=== PATIENT | female | born 1950 | race Caucasian/White ===

== ENCOUNTER 2023-05-03 09:58 | Inpatient (IN) | payer MEDICARE, BC, SELFPAY ==
[2023-05-03] VITALS (27 sets, daily range): BP systolic 90–171; BP diastolic 58–86; PULSE 79–94; RESP 18–20; TEMP 35.5–36.6; O2SAT 90–100; BMI 39.1
[2023-05-03 11:52] LABS: Appearance Urine Clear (Clear); Bilirubin Urine Negative (Negative); Blood Urine 1+ (Negative); Color Urine Yellow (Yellow); Glucose Urine 3+ (Negative); Ketones Urine Trace (Negative); Leukocyte Esterase Urine 1+ (Negative); Nitrite Urine Negative (Negative); Protein Urine Negative (Negative); Specific Gravity Urine <= 1.005 (1.000-1.030); Urobilinogen Urine 0.2 (0.2-1.0)
[2023-05-03 11:59] LABS: Amphetamine Screen Urine Negative (Negative); Barbiturate Screen Urine Negative (Negative); Benzodiazepines Screen Urine Negative (Negative); Cannabinoid Screen Urine Negative (Negative); Cocaine Screen Urine Negative (Negative); Methadone Screen Urine Negative (Negative); Methamphetamines Screen Urine Negative (Negative); Opiate Screen Urine Negative (Negative); Oxycodone Screen Urine Negative (Negative); Phencyclidine Screen Urine Negative (Negative); Tricyclic Antidepressant Urine POSITIVE (Negative)
[2023-05-03 12:06] LABS: Bacteria Urine Moderate; WBC Urine 25-50 (0-5)
[2023-05-03] MEDS: ONDANSETRON 2 MG/ML inj 4 MG IVP (12:08)
[2023-05-03] MEDS: 0.9 % SODIUM CHLORIDE 1000 ml 1,000 ML IV ×2 (12:09→13:23)
[2023-05-03 12:19] LABS: Basophils Absolute Auto 0.04 K/uL (0.00-0.30); Basophils Percent Auto 0.4 % (0.0-3.0); Eosinophils Absolute Auto 0.18 K/uL (0.00-0.50); Eosinophils Percent Auto 1.7 % (0.0-7.0); Hematocrit 40.4 % (33.0-51.0); Hemoglobin* 14.6 gm/dL (12.0-16.0); Immature Granulocytes Abs Auto 0.02 K/uL (0.00-0.30); Immature Granulocytes Pct Auto 0.2 %; Lymphocytes Percent Auto 16.9 % (20-44); Mean Corpuscular HGB Conc 36 gm/dL (32-36); Mean Corpuscular Hemoglobin 33 pg (26-34); Mean Corpuscular Volume 91 fL (80-100); Monocytes Percent Auto 7.8 % (0.0-11.0); Platelet Count* 347 K/uL (140-440); RDW Coefficient of Variation % 11.7 % (11.5-15.5); Red Blood Count 4.45 m/uL (4.00-5.20)
[2023-05-03 12:22] LABS: Troponin, Point-of-Care* 0.05 ng/ml (0.01-0.04)
[2023-05-03 12:30] LABS: Albumin* 3.6 g/dL (3.3-5.0); Chloride* 84 mmol/L (96-114)
[2023-05-03 12:31] LABS: Potassium* 3.5 mmol/L (3.6-5.1)
[2023-05-03 12:32] LABS: Slide Review Reflex No
[2023-05-03 12:33] LABS: Creatinine* 1.3 mg/dL (0.5-1.5); Estimated Glomerular Filt Rate 44 ml/min
[2023-05-03 12:34] LABS: Alanine Aminotransferase* 21 U/L (4-35); Alkaline Phosphatase* 164 U/L (40-150); Aspartate Amino Transferase* 23 U/L (12-35); Bilirubin Direct* 0.3 mg/dL (0.0-0.5); Blood Urea Nitrogen* 19 mg/dL (7-30); Calcium* 10.5 mg/dL (8.4-10.6); Carbon Dioxide* 16 mmol/L (20-32); Total Protein* 6.6 g/dL (6.0-8.3)
[2023-05-03 12:36] LABS: C Reactive Protein* 4.3 mg/dL (0.5-1.0)
[2023-05-03 12:44] LABS: Ethanol* < 0.01 % (0.01-0.03)
[2023-05-03 12:45] LABS: Glucose* 856 mg/dL (60-115)
[2023-05-03 12:46] LABS: Sodium* 117 mmol/L (135-149)
[2023-05-03] MEDS: MORPHINE 2 MG/ML inj IVP (12:48)
[2023-05-03 12:57] LABS: PCR FLU A Negative PCR FLU A (Negative); PCR FLU B Negative PCR FLU B (Negative); PCR RSV Negative PCR RSV (Negative)
--- NOTE | 2023-05-03 12:58 | CRLHL7_ITS ---
For Patients: As a result of the Century Cures Act, medical imaging exams and procedure reports are released immediately into your electronic medical record. You may view this report before your referring provider. If you have questions, please contact your health care provider. INDICATION: Dyspnea COMPARISON: None TECHNIQUE: PA and lateral views of the chest were acquired FINDINGS: TUBES AND LINES: None. HEART AND MEDIASTINUM: The heart size is top normal. The mediastinal contour appears normal for patient age. LUNGS AND PLEURAL SPACES: Abnormal interstitial markings primarily on the right. The appearance is suggestive of edema though it is asymmetric. This could be the asymmetric development of edema or an atypical appearing inflammatory process.No pleural effusion or pneumothorax. OSSEOUS STRUCTURES: Age-appropriate appearance. No acute focal finding. IMPRESSION: Abnormal interstitial markings. Differential considerations are asymmetric development of edema versus an atypical inflammatory process. Dictated by Raymundo Llanes MD @ 05/03/2023 2:35:21 PM (Electronically Signed)
[2023-05-03 13:09] LABS: SARS PCR* Negative SARS-CoV-2 (Negative)
--- NOTE | 2023-05-03 13:09 | ED.NAVMDI ---
HPI - Nausea/Vomiting/Diarrhea General Date Seen: 05/03/23 Chief complaint: Nausea/Vomiting Stated complaint: hard to breathe, diarrhea, vomiting Time Seen by Provider: 05/03/23 10:53 Source: patient, family, RN notes reviewed and old records reviewed Mode of arrival: wheelchair Limitations: no limitations History of Present Illness HPI Narrative: Patient is a 72-year-old female presents here from home with her son, for evaluation of weakness, diarrhea, intermittent nausea, and weight loss of 10 lb. Been going on for 1 month, she did call for an appointment with her primary care doctor but was told appointments were going out approximately 6 weeks. Her son then brought her to the emergency room, she denies any fevers associated with this she does have abdominal pain some mild back pain associated with this no dysuria frequency she has a history of previous UTIs in the past. No recent use of antibiotics however. History of type 2 diabetes on metformin. History of neuropathy she does take narcotics on off for this and on a contract from her primary care physician MD elicited complaint: nausea, diarrhea and abdominal pain Pertinent past history: anorexia Associated nausea: Yes Associated abdominal pain: Yes Location of pain: epigastric, L flank and R flank Radiation: diffuse Pain consistency: constant Severity: moderate Exacerbating factors: none Relieving factors: none Associated symptoms: loss of appetite, nausea/vomiting and shortness of breath Treatment prior to arrival: none Related Data Home Medications Medication Instructions Recorded Confirmed cetirizine 10 mg tablet 10 mg PO DAILY 05/03/23 05/03/23 cyclobenzaprine 10 mg tablet 10 mg PO TID PRN 05/03/23 05/03/23 duloxetine 30 mg capsule,delayed 60 mg PO DAILY 05/03/23 05/03/23 release (Cymbalta) famotidine 40 mg tablet 40 mg PO QHS 05/03/23 05/03/23 ibuprofen 600 mg tablet 600 mg PO BID PRN 05/03/23 05/03/23 lisinopril 40 mg tablet 40 mg PO DAILY 05/03/23 05/03/23 metformin 500 mg tablet 500 mg PO BID 05/03/23 05/03/23 metoprolol tartrate 100 mg tablet 100 mg PO BID 05/03/23 05/03/23 (Lopressor) nortriptyline 25 mg capsule 25 mg PO QHS 05/03/23 05/03/23 oxycodone 5 mg tablet 5 - 10 mg PO Q6H PRN pain 05/03/23 05/03/23 rosuvastatin 5 mg tablet (Crestor) 5 mg PO HS 05/03/23 05/03/23 spironolactone 25 mg tablet 25 mg PO DAILY 05/03/23 05/03/23 (Aldactone) Allergies Allergy/AdvReac Type Severity Reaction Status Date / Time amoxicillin Allergy Unknown Verified 05/03/23 10:41 Penicillins Allergy Unknown Verified 05/03/23 10:41 Review of Systems Status of ROS: Reports: 10 or more systems reviewed and unremarkable except as noted in History and below GI: Reports: nausea PFSH PFSH Social History Smoking Status: Former smoker Do you use any of these nicotine containing products: None Second hand tobacco smoke exposure: No How often do you have a drink containing alcohol: never How often do you have six or more drinks on one occasion: Never AUDIT-C Alcohol total score: 0 Non-prescribed substance use: denies use service: No Exam Narrative: Exam Narrative: Patient is seen and stabilization room 2, she is speaking to me normally, she is able to sit up, her pupils equal round reactive to light, she has a bit of a sallow complexion however. With a little bit of conjunctival paleness. Oropharynx is normal, seems a little bit dry. Her neck is supple absence of meningismus, chest is good air entry bilaterally with no wheezing crackles noted, heart sounds no clicks murmurs or gallops, her abdomen is obese, I do not detect a lot of tenderness, there is no organomegaly, bowel sounds are normal, no CVA tenderness is noted on palpation her extremities all move normally, no edema, neurologically intact in upper lower extremities. Const: Vital Signs, click to edit/add: Vital Signs - 24 hr 05/03/23 10:32 05/03/23 12:10 05/03/23 12:30 Temperature 96 F L Pulse Rate Pulse Rate [Pulse Oximeter] 88 Respiratory Rate 20 Blood Pressure [Ri ght Upper Arm] 135/82 142/81 H Pulse Oximetry 98 98 Oxygen Delivery Me thod Room Air 05/03/23 12:37 Temperature 97.1 F L Pulse Rate 85 Pulse Rate [Pulse Oximeter] Respiratory Rate 18 Blood Pressure [Ri ght Upper Arm] Pulse Oximetry 92 Oxygen Delivery Me thod Documenting provider has reviewed patient's vital signs: yes Course Vital Signs Vital signs: Initial Vital Signs Temperature 96 F L 05/03/23 10:32 Temperature Source Temporal Artery Scan 05/03/23 10:32 Pulse Rate 88 05/03/23 10:32 Respiratory Rate 20 05/03/23 10:32 Blood Pressure 135/82 05/03/23 10:32 Blood Pressure Mean 99 05/03/23 10:32 Blood Pressure Position Semi-Fowlers 05/03/23 10:32 Pulse Oximetry 98 05/03/23 10:32 Oxygen Delivery Method Room Air 05/03/23 10:32 Vital Signs Temperature 96 F L 05/03/23 10:32 Pulse Rate 88 05/03/23 10:32 Respiratory Rate 20 05/03/23 10:32 Blood Pressure 135/82 05/03/23 10:32 Pulse Oximetry 98 05/03/23 10:32 Oxygen Delivery Method Room Air 05/03/23 10:32 Temperature 97.1 F L 05/03/23 12:37 Pulse Rate 85 05/03/23 12:37 Respiratory Rate 18 05/03/23 12:37 Blood Pressure 142/81 H 05/03/23 12:30 Pulse Oximetry 92 05/03/23 12:37 Oxygen Delivery Method Room Air 05/03/23 10:32 MDM - Nausea/Vomiting/Diarrhea MDM Narrative Medical decision making narrative: Life-threatening differential diagnosis considered include stroke, coronary artery disease, pneumonia, and heart failure. Other differential diagnosis include but are not limited to electrolyte imbalances, anemia, medication reactions, and urinary tract infection Medical Records Attestation: I reviewed the patient's medical records. Lab Data Attestation: I reviewed the patient's lab results. Labs: Lab Results 05/03/23 05/03/23 05/03/23 Range/Units 11:25 11:45 12:05 WBC 10.30 (4.50-11.00) K/uL RBC 4.45 (4.00-5.20) m/uL Hgb 14.6 (12.0-16.0) gm/dL Hct 40.4 (33.0-51.0) % MCV 91 (80-100) fL MCH 33 (26-34) pg MCHC 36 (32-36) gm/dL RDW Coeff of Alison 11.7 (11.5-15.5) % Plt Count 347 (140-440) K/uL Neut % (Auto) 73.0 H (42.0-72.0) % Lymph % (Auto) 16.9 L (20-44) % Runnels % (Auto) 7.8 (0.0-11.0) % Eos % (Auto) 1.7 (0.0-7.0) % Baso % (Auto) 0.4 (0.0-3.0) % Neut # (Auto) 7.50 H (1.7-7.0) K/uL Lymph # (Auto) 1.70 (0.90-2.90) K/uL Runnels # (Auto) 0.80 (0.00-0.90) K/UL Eos # (Auto) 0.18 (0.00-0.50) K/uL Baso # (Auto) 0.04 (0.00-0.30) K/uL Abs Immat Gran (auto) 0.02 (0.00-0.30) K/uL Imm/Tot Granulo (auto) 0.2 % Sodium 117 L* (135-149) mmol/L Potassium 3.5 L (3.6-5.1) mmol/L Chloride 84 L (96-114) mmol/L Carbon Dioxide 16 L (20-32) mmol/L BUN 19 (7-30) mg/dL Creatinine 1.3 (0.5-1.5) mg/dL Estimated GFR 44 ml/min Glucose 856 H* (60-115) mg/dL Calcium 10.5 (8.4-10.6) mg/dL Total Bilirubin 1.0 (0.1-1.5) mg/dL Direct Bilirubin 0.3 (0.0-0.5) mg/dL AST 23 (12-35) U/L ALT 21 (4-35) U/L Alkaline Phosphatase 164 H (40-150) U/L C-Reactive Protein 4.3 H (0.5-1.0) mg/dL Total Protein 6.6 (6.0-8.3) g/dL Albumin 3.6 (3.3-5.0) g/dL Urine Color Yellow (Yellow) Urine Appearance Clear (Clear) Urine pH 6.0 (5.0-8.5) Ur Specific Morris <= 1.005 (1.000-1.030) Urine Protein Negative (Negative) Urine Glucose (UA) 3+ A (Negative) Urine Ketones Trace A (Negative) Urine Blood 1+ A (Negative) Urine Nitrite Negative (Negative) Urine Bilirubin Negative (Negative) Urine Urobilinogen 0.2 (0.2-1.0) Ur Leukocyte Esterase 1+ A (Negative) Urine RBC 5-10 A (0-2) Urine WBC 25-50 A (0-5) Ur Squamous Epith Cells None (None-Few) Urine Bacteria Moderate A (None) Urine Yeast Moderate A (None) Urine Opiates Screen Negative (Negative) Ur Oxycodone Screen Negative (Negative) Urine Methadone Screen Negative (Negative) Ur Propoxyphene Screen Negative (Negative) Ur Barbiturates Screen Negative (Negative) U Tricyclic Antidepress POSITIVE A (Negative) Ur Phencyclidine Scrn Negative (Negative) Ur Amphetamines Screen Negative (Negative) U Methamphetamines Scrn Negative (Negative) U Benzodiazepines Scrn Negative (Negative) Urine Cocaine Screen Negative (Negative) U Marijuana (THC) Screen Negative (Negative) Ur Drug Screen Comment See Note Ethyl Alcohol < 0.01 L (0.01-0.03) % SARS-CoV-2 (PCR) Negative SARS-CoV-2 (Negative) Influenza Type A (PCR) Negative PCR FLU A (Negative) Influenza Type B (PCR) Negative PCR FLU B (Negative) RSV (PCR) Negative PCR RSV (Negative) POC Troponin I 0.05 H (0.01-0.04) ng/ml Severely hyponatremic, creatinine mildly elevated, she does have the mildly elevated troponin, which will need to be rechecked in the setting, of no chest pain, and been ongoing symptoms. Her EKG showed no acute changes. Suggestive of ischemia. Which is reassuring. Swabs for viral etiology is negative, her urinalysis is positive, suggesting possible kidney issue, such as pyelonephritis/UTI. I did review her chart, she has tolerated cephalosporins in the past, we will give her some Rocephin and I will talk to the inpatient doctor about admission. ECG Data ECG interpretation date: 05/03/23 Prior ECG tracings: not available for review Interpretation: EKG shows normal sinus rhythm with a ventricular rate of 86, left ventricular hypertrophy, with mild repolarization abnormality no other acute changes, QTC slightly prolonged likely secondary to hyponatremia Discharge Plan Discharge Clinical Impression: History of neuropathy, Acute pyelonephritis, Acute dehydration, Diabetes, Acute hyperglycemia, Diarrhea, Acute hyponatremia Patient Disposition: Admitted As Observation Condition: Stable Prescriptions: No Action lisinopril 40 mg tablet 40 mg PO DAILY cyclobenzaprine 10 mg tablet 10 mg PO TID PRN metoprolol tartrate [Lopressor] 100 mg tablet 100 mg PO BID ibuprofen 600 mg tablet 600 mg PO BID PRN oxycodone 5 mg tablet 5 - 10 mg PO Q6H PRN (Reason: pain) metformin 500 mg tablet 500 mg PO BID spironolactone [Aldactone] 25 mg tablet 25 mg PO DAILY famotidine 40 mg tablet 40 mg PO QHS nortriptyline 25 mg capsule 25 mg PO QHS rosuvastatin [Crestor] 5 mg tablet 5 mg PO HS duloxetine [Cymbalta] 30 mg capsule,delayed release(DR/EC) 60 mg PO DAILY cetirizine 10 mg tablet 10 mg PO DAILY Follow Up/Referrals: Kasey Zepeda DO [Primary Care Provider] -
[2023-05-03] MEDS: cefTRIAXone 1 GM in 0.9 % SODIUM CHLORIDE Mini-bag 100 ML IVPB (13:22)
--- NOTE | 2023-05-03 13:43 | ED.NURSE ---
pt has ambulated to the bathroom two times now. She has urinated both times a moderate amount, is not incontinent. She has had one bowel movement. Moves assist of one.
--- NOTE | 2023-05-03 14:52 | ED.NURSE ---
helped pt use the bedpan, pt voided medium amount. Upon cleaning her lisandro area noted the folds in her groin were very red, and yeasty.
--- NOTE | 2023-05-03 15:31 | ED.NURSE ---
Pt report given to [facility] nurse, pt transferred over to [facility].
[2023-05-03] MEDS: 0.9 % SODIUM CHLORIDE 1000 ml 1,000 ML 250 ML IV (15:42)
[2023-05-03 15:53] LABS: HCO3 VBG 22 mmol/L (21-28); Lactate* 2.5 mmol/L (0.5-1.9); PCO2 VBG 42 mmHG (40-50); PO2 VBG 26.9 mmHG (25-47); pH VBG 7.325 (7.32-7.43)
[2023-05-03] MEDS: PANTOPRAZOLE SODIUM 40 MG INJ IVP (15:57)
[2023-05-03] MEDS: INSULIN INF 100 UNIT/100 ML 100 UNIT/100 ML BAG 6.5 UNIT IVPB (16:03)
[2023-05-03 16:14] LABS: INR 1.09 (0.91-1.10); Prothrombin Time 14.8 Seconds
[2023-05-03 16:22] LABS: Lipase* 1456 U/L (23-300)
[2023-05-03 16:23] LABS: Magnesium* 1.2 mg/dL (1.5-2.6)
[2023-05-03 16:25] LABS: Hemoglobin A1C* 10.43 % (0-5.6)
[2023-05-03 16:37] LABS: Troponin I* 0.03 ng/mL (0.01-0.04)
[2023-05-03 16:39] LABS: NT Pro B Type NatriureticPept* 4440 pg/mL
[2023-05-03 16:41] LABS: Procalcitonin* 0.35 ng/mL (<0.50)
[2023-05-03 17:27] LABS: Chloride* 90 mmol/L (96-114)
[2023-05-03 17:28] LABS: Potassium* 3.3 mmol/L (3.6-5.1)
[2023-05-03 17:30] LABS: Creatinine* 1.2 mg/dL (0.5-1.5); Est. Creatinine Clearance* 42.42; Estimated Glomerular Filt Rate 49 ml/min
[2023-05-03 17:31] LABS: Blood Urea Nitrogen* 19 mg/dL (7-30); Calcium* 9.9 mg/dL (8.4-10.6); Carbon Dioxide* 18 mmol/L (20-32); Sodium* 123 mmol/L (135-149)
--- NOTE | 2023-05-03 17:45 | P.IMHP_ITS ---
Hospitalist- H&P: HPI History of Present Illness Date Seen: 05/03/23 Chief complaint: hard to breathe, diarrhea, vomiting Narrative: ADMISSION HISTORY AND PHYSICAL - HOSPITALIST Chief Complaint: My mom has had declining health over the last month, uncontrolled diarrhea, mild confusion and lethargy HPI: 72-year-old, [place], presents to our ER with her son. He states that she has been experiencing increased weakness, diarrhea, poor intake x4 weeks. Worse in the last 4 days. She does not leave their apartment much. She uses a walker from bed to bathroom. She has been staying in her bedroom. She has been having bowel accidents. She has seemed confused. Is a diabetic but has not checked her blood sugar. He is unsure what medications she takes and if she has been taking them. No obvious fever. No shakes or chills. No rash. She has not been complaining of chest pain. She started describing shortness of breath in the last couple of days. No obvious cough for Hack. No obvious one-sided weakness. ER COURSE: Found to have a blood sugar greater than 800. Very mildly acidotic. Lethargy, poor short-term memory. Vitals stable. Possible UTI. Hyperosmolar hyperglycemic diabetic state (HHS) identified. Hospital medicine team contacted for admission and further management. Admitted to our ICU. CODE STATUS: Full code EMERGENCY CONTACT PLAN: Johan Morgan, . Mahin [phone]. I've updated the PFSH, medications and allergies in the [facility]se tabs. INVESTIGATIONS: LABS/MICRO/ECG/IMAGING 116/84. Pulse 85. Resp is 18. Afebrile. O2 sat 92% on room air. 113 kg. BMI 39 CBC reflects a mild leukocytosis up to 10.3. Hemoglobin 14.6. Platelet count 347. However I feel like this is hemoconcentrated. INR 1.09 PH 7.3. PCO2 42. Bicarb 22. (after arrival to the floor in fluids, before insulin) Sodium on presentation was 117, corrected for glucose of 856, 135 Bicarb originally was 16. No gas completed in the ED. Potassium 3.5. Chloride 84. Creatinine 1.3 Calcium normal Magnesium 1.2 Lactate 2.5 A1c 7.4 Lipase 1456 Troponin is normal CRP 4.3, procalcitonin 0.3 UA showed 3+ glucose, white blood cells, moderate bacteria in [place]. 1+ leukocyte esterase. Two view chest x-ray Abnormal interstitial markings. Differential considerations are asymmetric development of edema versus an atypical inflammatory process. Blood cultures and urine culture pending EKG LVH, prolonged QT REVIEW OF SYSTEMS: 12-point ROS completed with patient and negative unless otherwise stated in HPI or below. PHYSICAL EXAM: CONSTITUTIONAL: Pale, tired. Edentulous. Mildly confused about the last month. RN reporting increasing awareness as her blood sugar decreases. VITAL SIGNS: see record. HEENT: Normocephalic, atraumatic. PERRL, EOMI, conjunctivae pink, no scleral icterus. Ears and nose externally normal. Pharynx normal. NECK: No JVD. No carotid bruit, no thyromegaly, no adenopathy. CHEST: Clear to auscultation bilaterally HEART: S1 and S2 normal. No harsh murmurs. Edema minimal MUSCULOSKELETAL: No gross joint deformity or swelling. NEURO: Cranial nerves intact. Grossly intact. No asymmetric findings. SKIN: No rashes, petechiae, concerning changes PSYCHIATRIC: Euthymic. ADMIT TO MEDSURG: CCU DVT: Lovenox GI: PO intake Time spent: Today I spent 75 minutes seeing the patient, discussing the patient with ER staff, reviewing Expanse and EPIC notes/diagnostics, discussing the care plan with our care time that includes social work, PT/OT, pharmacy, RT, senior living and documenting my impressions and plan in the medical record. [facility] Medical History (Updated 05/03/23 @ 18:23 by Davina Delatorre MD) Edentulism, complete ?K08.109 - Complete loss of teeth, unspecified cause, unspecified class (ICD- 10) Morbid obesity ?E66.01 - Morbid (severe) obesity due to excess calories (ICD-10) Lumbar degenerative disc disease ?M51.36 - Other intervertebral disc degeneration, lumbar region (ICD-10) H/O Graves' disease ?Z86.39 - Personal history of other endocrine, nutritional and metabolic disease (ICD-10) Opioid dependence ?F11.20 - Opioid dependence, uncomplicated (ICD-10) Dysthymic disorder ?F34.1 - Dysthymic disorder (ICD-10) Hypertension ?I10 - Essential (primary) hypertension (ICD-10) Shingles ?B02.9 - Zoster without complications (ICD-10) Type 2 diabetes mellitus ?E11.9 - Type 2 diabetes mellitus without complications (ICD-10) Chronic pain ?G89.29 - Other chronic pain (ICD-10) Noncompliance ?Z91.199 - Patient's noncompliance with other medical treatment and regimen due to unspecified reason (ICD-10) Surgical History (Updated 05/03/23 @ 18:06 by Davina Delatorre MD) H/O hernia repair ?Z98.890 - Other specified postprocedural states (ICD-10) ?Z87.19 - Personal history of other diseases of the digestive system (ICD-10) History of ?Z98.891 - History of uterine scar from previous surgery (ICD-10) History of carpal tunnel release ?Z98.890 - Other specified postprocedural states (ICD-10) History of bunionectomy ?Z98.890 - Other specified postprocedural states (ICD-10) Social History What is your current living situation?: I presently have a place to live Problems where you live: no known problems Problems where you live details: N/A In the past 12 months, utilities in danger of being shut off: no In the past 12 mos, have been you worried that your food would run out before you had money to buy more?: never true In the past 12 mos, the food you bought just didn't last and you didn't have money to buy more?: never true Smoking Status: Former smoker Do you use any of these nicotine containing products: None Second hand tobacco smoke exposure: No How often do you have a drink containing alcohol: never How often do you have six or more drinks on one occasion: Never AUDIT-C Alcohol total score: 0 Non-prescribed substance use: denies use Caffeine: Yes How often does anyone, including family, friends and others, physically hurt you : never How often does anyone, including family, friends and others, insult or talk down to you: never How often does anyone, including family, friends and others, threaten you with harm: never How often does anyone, including family, friends and others, scream or curse at you: never service: No Meds Home Medications and Allergies Home Medications Medication Instructions Recorded Confirmed Type cetirizine 10 mg tablet 10 mg PO DAILY 05/03/23 05/03/23 History cholecalciferol (vitamin D3) 50 50 mcg PO DAILY 05/03/23 05/03/23 History mcg (2,000 unit) capsule (Vitamin D3) cyclobenzaprine 10 mg tablet 10 mg PO TID PRN 05/03/23 05/03/23 History duloxetine 30 mg capsule,delayed 60 mg PO DAILY 05/03/23 05/03/23 History release (Cymbalta) famotidine 40 mg tablet 40 mg PO QHS 05/03/23 05/03/23 History ibuprofen 600 mg tablet 600 mg PO BID PRN 05/03/23 05/03/23 History lisinopril 40 mg tablet 40 mg PO DAILY 05/03/23 05/03/23 History metformin 500 mg tablet 500 mg PO BID 05/03/23 05/03/23 History metoprolol tartrate 100 mg tablet 100 mg PO BID 05/03/23 05/03/23 History (Lopressor) nortriptyline 25 mg capsule 25 mg PO QHS 05/03/23 05/03/23 History oxycodone 5 mg tablet 5 - 10 mg PO Q6H PRN pain 05/03/23 05/03/23 History rosuvastatin 5 mg tablet (Crestor) 5 mg PO HS 05/03/23 05/03/23 History spironolactone 25 mg tablet 25 mg PO DAILY 05/03/23 05/03/23 History (Aldactone) Allergies Allergy/AdvReac Type Severity Reaction Status Date / Time amoxicillin Allergy Unknown Verified 05/03/23 10:41 Penicillins Allergy Unknown Verified 05/03/23 10:41 Exam Const: Vital Signs, click to edit/add: Vital Signs - 24 hr 05/03/23 10:32 05/03/23 12:10 05/03/23 12:30 Temperature 96 F L Pulse Rate Pulse Rate [Apical ] Pulse Rate [Pulse Oximeter] 88 Respiratory Rate 20 Blood Pressure Blood Pressure [Le ft Arm] Blood Pressure [Ri ght Upper Arm] 135/82 142/81 H Pulse Oximetry 98 98 Oxygen Delivery Me thod Room Air 05/03/23 12:37 05/03/23 12:45 05/03/23 13:00 Temperature 97.1 F L Pulse Rate 85 84 81 Pulse Rate [Apical ] Pulse Rate [Pulse Oximeter] Respiratory Rate 18 Blood Pressure Blood Pressure [Le ft Arm] Blood Pressure [Ri ght Upper Arm] Pulse Oximetry 92 96 100 Oxygen Delivery Ks thod 05/03/23 13:02 05/03/23 13:21 05/03/23 13:30 Temperature Pulse Rate 79 83 80 Pulse Rate [Apical ] Pulse Rate [Pulse Oximeter] Respiratory Rate Blood Pressure 142/71 H Blood Pressure [Le ft Arm] Blood Pressure [Ri ght Upper Arm] Pulse Oximetry 98 98 [facility] 13:32 05/03/23 13:50 05/03/23 14:00 Temperature Pulse Rate 85 85 81 Pulse Rate [Apical ] Pulse Rate [Pulse Oximeter] Respiratory Rate Blood Pressure 138/85 Blood Pressure [Le ft Arm] Blood Pressure [Ri ght Upper Arm] Pulse Oximetry 98 96 97 [facility] 05/[facility]/23 14:04 05/03/23 14:11 05/03/23 14:15 Temperature Pulse Rate 80 84 84 Pulse Rate [Apical ] Pulse Rate [Pulse Oximeter] Respiratory Rate Blood Pressure 146/86 H Blood Pressure [Le ft Arm] Blood Pressure [Ri ght Upper Arm] Pulse Oximetry 97 95 97 [facility] 05/[facility]/23 14:30 05/03/23 14:31 05/03/23 14:35 Temperature 97.6 F Pulse Rate 84 87 Pulse Rate [Apical ] Pulse Rate [Pulse Oximeter] Respiratory Rate 18 Blood Pressure 165/81 H Blood Pressure [Le ft Arm] Blood Pressure [Ri ght Upper Arm] Pulse Oximetry 97 96 Oxygen Delivery Ks thod 05/03/23 14:45 05/03/23 15:00 05/03/23 15:02 Temperature Pulse Rate 83 86 84 Pulse Rate [Apical ] Pulse Rate [Pulse Oximeter] Respiratory Rate Blood Pressure 171/74 H Blood Pressure [Le ft Arm] Blood Pressure [Ri ght Upper Arm] Pulse Oximetry 99 93 94 Oxygen Delivery Ks thod 05/03/23 15:20 05/03/23 16:30 05/03/23 16:30 Temperature 98 F Pulse Rate 88 Pulse Rate [Apical ] 85 Pulse Rate [Pulse Oximeter] Respiratory Rate 18 Blood Pressure Blood Pressure [Le ft Arm] 116/84 Blood Pressure [Ri ght Upper Arm] Pulse Oximetry 100 92 Oxygen Delivery Me thod Room Air Room Air Hospitalist - H&P: Result Labs Labs: Short CBC 05/03/23 Range/Units 12:05 WBC 10.30 (4.50-11.00) K/uL Hgb 14.6 (12.0-16.0) gm/dL Hct 40.4 (33.0-51.0) % Plt Count 347 (140-440) K/uL BMP 05/03/23 05/03/23 12:05 15:37 Sodium 117 L* 123 L* Potassium 3.5 L 3.3 L Chloride 84 L 90 L Carbon Dioxide 16 L BUN 19 Creatinine 1.3 Glucose 856 H* Calcium 10.5 Cardiac Enzymes 05/03/23 Range/Units 15:37 Troponin I 0.03 (0.01-0.04) ng/mL Liver Function 05/03/23 Range/Units 12:05 Total Bilirubin 1.0 (0.1-1.5) mg/dL Direct Bilirubin 0.3 (0.0-0.5) mg/dL AST 23 (12-35) U/L ALT 21 (4-35) U/L Alkaline Phosphatase 164 H (40-150) U/L Albumin 3.6 (3.3-5.0) g/dL Urine 05/03/23 Range/Units 11:45 Urine Color Yellow (Yellow) Urine Appearance Clear (Clear) Urine pH 6.0 (5.0-8.5) Ur Specific [place] <= 1.005 (1.000-1.030) Urine Protein Negative (Negative) Urine Glucose (UA) 3+ A (Negative) Assessment and Plan Assessment and plan (1) Hyperosmolar hyperglycemic state (HHS): Problem comment: -stupor, hyperglycemia, non acidotic -insulin drip, fluids, electrolyte correction -pseudohyponatriemia Status: Acute (2) Type 2 diabetes mellitus: Problem comment: -A1c greater than 10 -presenting in HHS -insulin drip, transitioning to subcu insulin per protocol -mildly to moderately dehydrated, replacing electrolytes and intravenous volume -treating underlying pneumonia and cystitis -likely noncompliance/lifestyle is the root cause Status: Acute (3) Acute pyelonephritis: Problem comment: -urine culture pending. Ceftriaxone started in the ED. Blood cultures pending but drawn after ceftriaxone on the floor. Status: Acute (4) Diarrhea: Problem comment: -stool studies, C diff ordered Status: Acute (5) Pneumonia: Problem comment: -abnl chest xray; consider repeat or CT scan -levaquin instead ceftriaxone (cover atypical pneumonia/UTI) -add flagyl to cover diarrhea illness. Status: Acute (6) Hypertension: Problem comment: Lisinopril, hydralazine, metoprolol, spironolactone -use Home meds judiciously as her compliance is in question and she is acutely ill Status: Acute (7) Dysthymic disorder: Problem comment: -continue Cymbalta Status: Acute (8) Noncompliance: Status: Acute (9) Chronic pain: Status: Acute (10) Opioid dependence: Problem comment: -chronic back pain. Holding home Flexeril dosing. Oxycodone per home regimen was 4 5 mg tabs max today. Will continue to make this available so we can avoid withdrawal. Status: Acute (11) Morbid obesity: Status: Acute (12) Lumbar degenerative disc disease: Status: Acute (13) H/O Graves' disease: Problem comment: -check TSH Status: Acute (14) Shingles: Problem comment: -left buttock, no pain. Chronic/intermittent -cover with Mepilex Status: Acute (15) History of tobacco abuse: Problem comment: -[id number]. 1.5 PACKS PER DAY Status: Acute (16) Edentulism, complete: Status: Acute
[2023-05-03] MEDS: MAGNESIUM IV 4 GM/100 ML PIGGYBACK IVPB (18:12)
[2023-05-03 18:24] LABS: Glucose* 666 mg/dL (60-115)
[2023-05-03] MEDS: POTASSIUM CHLORIDE 10 MEQ/100 ML PIGGYBACK 100 MEQ IVPB ×2 (18:25→19:59)
[2023-05-03] MEDS: levoFLOXacin 500 MG TABLET PO (19:47)
[2023-05-03] MEDS: 5 % DEX/0.45 SOD CHL+KCL20 mEq 1,000 ML 200 ML IV (19:51)
[2023-05-03] MEDS: metroNIDAZOLE 500 MG/100 ML PIGGYBACK 100 MG IVPB (20:01)
[2023-05-03] MEDS: SODIUM CHLORIDE 0.9 % (FLUSH) 10 ML SYRINGE 5 ML IVF (20:07)
[2023-05-03] MEDS: ENOXAPARIN 40 MG/0.4 ML INJ SUBCUT (20:46)
[2023-05-03] MEDS: ROSUVASTATIN CALCIUM 10 MG TABLET 5 MG PO (20:46)
[2023-05-03] MEDS: FAMOTIDINE 20 MG TABLET 40 MG PO (20:47)
[2023-05-03 22:12] LABS: HCO3 VBG 21 mmol/L (21-28); Lactate* 2.2 mmol/L (0.5-1.9); PCO2 VBG 40 mmHG (40-50); PO2 VBG 27.3 mmHG (25-47); pH VBG 7.326 (7.32-7.43)
[2023-05-03 22:28] LABS: Chloride* 97 mmol/L (96-114); Potassium* 3.3 mmol/L (3.6-5.1); Sodium* 127 mmol/L (135-149)
[2023-05-03 22:31] LABS: Blood Urea Nitrogen* 16 mg/dL (7-30); Calcium* 9.5 mg/dL (8.4-10.6); Carbon Dioxide* 18 mmol/L (20-32); Creatinine* 1.2 mg/dL (0.5-1.5); Est. Creatinine Clearance* 42.42; Estimated Glomerular Filt Rate 49 ml/min
[2023-05-03 22:48] LABS: Glucose* 359 mg/dL (60-115)
[2023-05-04] VITALS (13 sets, daily range): BP systolic 116–158; BP diastolic 61–85; PULSE 58–88; RESP 18–20; TEMP 36.6–36.8; O2SAT 91–99; BMI 38.9
[2023-05-04] MEDS: 0.9 % SODIUM CH + KCL 20 mEq/L 1,000 ML 125 ML IV (01:14)
[2023-05-04] MEDS: metroNIDAZOLE 500 MG/100 ML PIGGYBACK 100 MG IVPB ×2 (04:13→12:19)
[2023-05-04 06:58] LABS: Hematocrit 36.6 % (33.0-51.0); Hemoglobin* 12.8 gm/dL (12.0-16.0); Mean Corpuscular HGB Conc 35 gm/dL (32-36); Mean Corpuscular Hemoglobin 33 pg (26-34); Mean Corpuscular Volume 93 fL (80-100); Platelet Count* 328 K/uL (140-440); Red Blood Count 3.94 m/uL (4.00-5.20); White Blood Count* 8.56 K/uL (4.50-11.00)
[2023-05-04 07:16] LABS: HCO3 VBG 23 mmol/L (21-28); Ionized Calcium* 1.39 mmol/L (1.11-1.30); Lactate* 1.7 mmol/L (0.5-1.9); PCO2 VBG 50 mmHG (40-50); PO2 VBG 38.9 mmHG (25-47); pH VBG 7.272 (7.32-7.43)
[2023-05-04 07:17] LABS: Slide Review Reflex No
--- NOTE | 2023-05-04 07:35 | PC.NURSE ---
SHIFT NOTE : Pt A&O, cooperative. Denies pain, SOB, CP, and N/V. Up to the BR with a 1 assist and a walker, steady. Initially on an insulin drip, stopped around 2029 per MD, SSI started and Levemir given. See eMAR for insulins given overnight. Per MD was to do a 0400 blood sugar and give SSI per protocol, blood sugar was 386, 15units SSI given. Pt received 2 bags of IV 10MEQ potassium, MD updated that despite piggyback and slowing the rate, pt was not tolerating the infusion, MD gave ok to discontinue the last two bags of potassium. Pt on 1-2L O2 overnight, oxygen saturations mid 90's.
[2023-05-04 07:38] LABS: Lipase* 697 U/L (23-300)
[2023-05-04 07:41] LABS: C Reactive Protein* 2.8 mg/dL (0.5-1.0)
[2023-05-04 07:52] LABS: Troponin I* 0.04 ng/mL (0.01-0.04)
[2023-05-04 07:55] LABS: Procalcitonin* 0.33 ng/mL (<0.50)
[2023-05-04] MEDS: SODIUM CHLORIDE 0.9 % (FLUSH) 10 ML SYRINGE 5 ML IVF ×2 (08:08→21:30)
[2023-05-04] MEDS: DULOXETINE 30 MG CAPSULE DR 60 MG PO (08:08)
[2023-05-04 08:42] LABS: NT Pro B Type NatriureticPept* 3480 pg/mL
[2023-05-04] MEDS: POTASSIUM BICARB 25 MEQ EFFERVESCENT TAB 50 MEQ PO (10:13)
--- NOTE | 2023-05-04 12:05 | P.IMPN_ITS ---
Progress Note: A&P Assessment and plan (1) Hyperosmolar hyperglycemic state (HHS): Problem details: -stupor, hyperglycemia, non acidotic -insulin drip, fluids, electrolyte correction -pseudohyponatriemia Status: Acute (2) Acute confusion: Problem details: Will do cognitive assessment to determine whether there is underlying cognitive problem. She is acutely better. Acute confusion likely primarily due to HHS Status: Acute (3) Pneumonia: Problem details: Clinically does not have obvious symptoms of pneumonia. Treat with Levaquin for community-acquired pneumonia based on abnormal chest x-ray. Using Levaquin to treat empirically for UTI. Status: Acute (4) Acute pyelonephritis: Problem details: Patient with recurrent UTI. Has chronic urinary symptoms. On cephalexin for prophylaxis. On that basis will use Levaquin for treatment. Status: Acute (5) Noncompliance: Problem details: Patient acknowledges chronic medication noncompliance and poor diabetes monitoring at home. This is likely gotten much worse with her increasing confusion over the past month Status: Acute (6) Morbid obesity: Status: Acute (7) Opioid dependence: Problem details: -chronic back pain. Holding home Flexeril dosing. Had been taking oxycodone approximately 5 mg tablets up to 3 times a day. Will change dosing so she takes no more than 1 5 mg tablet at a time. Status: Acute (8) Type 2 diabetes mellitus: Problem details: -A1c greater than 10 -presenting in [facility] -insulin drip, transitioning to subcu insulin per protocol -mildly to moderately dehydrated, replacing electrolytes and intravenous volume -treating underlying pneumonia and cystitis -likely noncompliance/lifestyle is the root cause Temporarily will use insulin to control diabetes. Recommend resuming metformin and Bydureon when GI symptoms have improved. Status: Acute (9) History of tobacco abuse: Problem details: -[id number]. 1.5 PACKS PER DAY Status: Acute (10) Hypertension: Problem details: Lisinopril, hydralazine, metoprolol, spironolactone -use Home meds judiciously as her compliance is in question and she is acutely ill Status: Acute (11) Dysthymic disorder: Problem details: -continue Cymbalta Status: Acute (12) Diarrhea: Problem details: -stool studies, C diff ordered No stools since admission Status: Acute (13) Chronic pain: Status: Acute Plan Continue in-hospital for optimizing diabetes control, resuming blood pressure medications, monitoring and treating GI problems. Anticipate discharge to home when patient is able to manage self medication and tolerating oral food and fluid. Time Spent With Patient Total time spent: Total time spent today is 60 minutes, 40 minutes in coordination of care discussing with patient other providers ongoing evaluation and management of diabetes and hypertension and medication compliance Subjective Date Seen: 05/04/23 Interval history: 72-year-old female seen in followup of hospital admission for 1 month history of diarrhea, anorexia, nausea progressing to acute confusion. On admission she was found to be hyperglycemic and hyponatremic. There was a question also of a urinary tract infection and pulmonary infiltrate. She was treated with insulin drip which has been discontinued and now she is on subcutaneous insulin. She was given ceftriaxone and then switched to Levaquin to treat both UTI and pulse of bowl pneumonia. She has had some shortness of breath but no other respiratory symptoms. She is not aware of any fever. She does have a history of recurrent UTIs and has been on cephalexin for daily UTI prophylaxis. She tells me she is not reliably taking this medication however. During the past month with her progressive confusion she has been less compliant with her medications as well. She thinks she ran out of her glipizide about a month ago. She has also not been taking her blood pressure medications reliably recently. She was prescribed Bydureon but has not filled that prescription or started that medication. Overnight she is weaned off of the insulin drip to subcutaneous insulin. Blood sugars have improved though not yet back to normal. Metformin has been held because of her diarrhea. She has had no further diarrhea since admission. She has been able to eat without nausea or vomiting. Bydureon has been held because of diarrhea, nausea and anorexia as well. Vital signs have been relatively normal. She reports dyspnea with exertion but otherwise no respiratory symptoms at rest, no cough, dyspnea. She has had no fever or chest pain. Exam Narrative: Exam Narrative: She is alert and appears in no distress. She is oriented to her circumstances and able to give her own history. Eyes are normal. Oropharynx: Edentulous with small airway. Neck is supple without mass or adenopathy. Respirations are clear to auscultation without wheezing rales or rhonchi. Cardiovascular: S1, S2, regular rate and rhythm. No murmur gallop or rub. Abdomen: Bowel sounds active. Abdomen is soft with minimal epigastric tenderness. Extremities without edema. She has self reported decreased sensation in her feet bilaterally due to neuropathy. Intact pedal pulses. No rash. Const: Vital Signs, click to edit/add: Vital Signs - 24 hr 05/03/23 12:10 05/03/23 12:30 05/03/23 12:37 Temperature 97.1 F L Pulse Rate 85 Pulse Rate [Apical ] Respiratory Rate 18 Blood Pressure Blood Pressure [Le ft Arm] Blood Pressure [Ri ght Upper Arm] 142/81 H Pulse Oximetry 98 92 Oxygen Delivery Me thod Oxygen Flow Rate 05/03/23 12:45 05/03/23 13:00 05/03/23 13:02 Temperature Pulse Rate 84 81 79 Pulse Rate [Apical ] Respiratory Rate Blood Pressure 142/71 H Blood Pressure [Le ft Arm] Blood Pressure [Ri ght Upper Arm] Pulse Oximetry 96 100 98 Oxygen Delivery Me thod Oxygen Flow Rate 05/03/23 13:21 05/03/23 13:30 05/03/23 13:32 Temperature Pulse Rate 83 80 85 Pulse Rate [Apical ] Respiratory Rate Blood Pressure 138/85 Blood Pressure [Le ft Arm] Blood Pressure [Ri ght Upper Arm] Pulse Oximetry 98 97 98 Oxygen Delivery Me thod Oxygen Flow Rate 05/03/23 13:50 05/03/23 14:00 05/03/23 14:04 Temperature Pulse Rate 85 81 80 Pulse Rate [Apical ] Respiratory Rate Blood Pressure Blood Pressure [Le ft Arm] Blood Pressure [Ri ght Upper Arm] Pulse Oximetry 96 97 97 Oxygen Delivery Me thod Oxygen Flow Rate 05/03/23 14:11 05/03/23 14:15 05/03/23 14:30 Temperature Pulse Rate 84 84 84 Pulse Rate [Apical ] Respiratory Rate Blood Pressure 146/86 H Blood Pressure [Le ft Arm] Blood Pressure [Ri ght Upper Arm] Pulse Oximetry 95 97 97 Oxygen Delivery Me thod Oxygen Flow Rate 05/03/23 14:31 05/03/23 14:35 05/03/23 14:45 Temperature 97.6 F Pulse Rate 87 83 Pulse Rate [Apical ] Respiratory Rate 18 Blood Pressure 165/81 H Blood Pressure [Le ft Arm] Blood Pressure [Ri ght Upper Arm] Pulse Oximetry 96 99 Oxygen Delivery Me thod Oxygen Flow Rate 05/03/23 15:00 05/03/23 15:02 05/03/23 15:20 Temperature Pulse Rate 86 84 Pulse Rate [Apical ] Respiratory Rate Blood Pressure 171/74 H Blood Pressure [Le ft Arm] Blood Pressure [Ri ght Upper Arm] Pulse Oximetry 93 94 100 Oxygen Delivery Me thod Room Air Oxygen Flow Rate 05/03/23 16:30 05/03/23 16:30 05/03/23 18:00 Temperature 98 F 98 F Pulse Rate 88 Pulse Rate [Apical ] 85 94 Respiratory Rate 18 18 Blood Pressure Blood Pressure [Le ft Arm] 116/84 131/78 Blood Pressure [Ri ght Upper Arm] Pulse Oximetry 92 98 Oxygen Delivery Me thod Room Air Room Air Oxygen Flow Rate 05/03/23 19:00 05/03/23 20:00 05/03/23 22:00 Temperature 97.8 F 98 F Pulse Rate Pulse Rate [Apical ] 90 88 Respiratory Rate 20 20 18 Blood Pressure Blood Pressure [Le ft Arm] 90/58 L 107/63 Blood Pressure [Ri ght Upper Arm] Pulse Oximetry 90 95 Oxygen Delivery Me thod Room Air Room Air Oxygen Flow Rate 05/04/23 00:00 05/04/23 00:00 05/04/23 02:00 Temperature 98.3 F 98.1 F Pulse Rate 82 Pulse Rate [Apical ] 78 82 Respiratory Rate 20 20 Blood Pressure Blood Pressure [Le ft Arm] 116/61 131/68 Blood Pressure [Ri ght Upper Arm] Pulse Oximetry 95 99 Oxygen Delivery Me thod Nasal Cannula Nasal Cannula Oxygen Flow Rate 2 1 05/04/23 04:00 05/04/23 06:00 05/04/23 07:58 Temperature 97.9 F 98 F 98.1 F Pulse Rate Pulse Rate [Apical ] 87 78 88 Respiratory Rate 20 20 18 Blood Pressure Blood Pressure [Le ft Arm] 119/85 137/75 158/83 H Blood Pressure [Ri ght Upper Arm] Pulse Oximetry 97 94 99 Oxygen Delivery Me thod Nasal Cannula Nasal Cannula Room Air Oxygen Flow Rate 1 1 05/04/23 08:00 05/04/23 08:00 Temperature Pulse Rate 83 Pulse Rate [Apical ] 88 Respiratory Rate 18 Blood Pressure Blood Pressure [Le ft Arm] Blood Pressure [Ri ght Upper Arm] Pulse Oximetry Oxygen Delivery Me thod Oxygen Flow Rate Documenting provider has reviewed patient's vital signs: yes Labs Labs: Laboratory Results - last 24 hr 05/03/23 05/03/23 05/03/23 11:25 11:45 12:05 WBC 10.30 RBC 4.45 Hgb 14.6 Hct 40.4 MCV 91 MCH 33 MCHC 36 RDW Coeff of Alison 11.7 Plt Count 347 Neut % (Auto) 73.0 H Lymph % (Auto) 16.9 L [place] % (Auto) 7.8 Eos % (Auto) 1.7 Baso % (Auto) 0.4 Neut # (Auto) 7.50 H Lymph # (Auto) 1.70 [place] # (Auto) 0.80 Eos # (Auto) 0.18 Baso # (Auto) 0.04 Abs Immat Gran (auto) 0.02 Imm/Tot Granulo (auto) 0.2 INR VBG pH VBG pCO2 VBG pO2 VBG HCO3 Sodium 117 L* Potassium 3.5 L Chloride 84 L Carbon Dioxide 16 L BUN 19 Creatinine 1.3 Estimated Creat Clear Estimated GFR 44 Glucose 856 H* Hemoglobin A1c Lactate Calcium 10.5 Ionized Calcium Carolyn Magnesium Total Bilirubin 1.0 Direct Bilirubin 0.3 AST 23 ALT 21 Alkaline Phosphatase 164 H Troponin I C-Reactive Protein 4.3 H NT-Pro-B Natriuret Pep Total Protein 6.6 Albumin 3.6 Lipase Procalcitonin Urine Color Yellow Urine Appearance Clear Urine pH 6.0 Ur Specific [place] <= 1.005 Urine Protein Negative Urine Glucose (UA) 3+ A Urine Ketones Trace A Urine Blood 1+ A Urine Nitrite Negative Urine Bilirubin Negative Urine Urobilinogen 0.2 Ur Leukocyte Esterase 1+ A Urine RBC 5-10 A Urine WBC 25-50 A Ur Squamous Epith Cells None Urine Bacteria Moderate A Urine Yeast Moderate A Ethyl Alcohol < 0.01 L SARS-CoV-2 (PCR) Negative SARS-CoV-2 Influenza Type A (PCR) Negative PCR FLU A Influenza Type B (PCR) Negative PCR FLU B RSV (PCR) Negative PCR RSV Lab Acknowledgement POC Troponin I 0.05 H 05/03/23 05/03/23 05/03/23 15:37 15:56 16:16 WBC RBC Hgb Hct MCV MCH MCHC RDW Coeff of Alison Plt Count Neut % (Auto) Lymph % (Auto) [place] % (Auto) Eos % (Auto) Baso % (Auto) Neut # (Auto) Lymph # (Auto) [place] # (Auto) Eos # (Auto) Baso # (Auto) Abs Immat Gran (auto) Imm/Tot Granulo (auto) INR 1.09 VBG pH 7.325 VBG pCO2 42 VBG pO2 26.9 VBG HCO3 22 Sodium 123 L* Potassium 3.3 L Chloride 90 L Carbon Dioxide 18 L BUN 19 Creatinine 1.2 Estimated Creat Clear 42.42 Estimated GFR 49 Glucose 666 H* Hemoglobin A1c 10.43 H Lactate 2.5 H Calcium 9.9 Ionized Calcium Carolyn 1.30 Magnesium 1.2 L Total Bilirubin Direct Bilirubin AST ALT Alkaline Phosphatase Troponin I 0.03 C-Reactive Protein NT-Pro-B Natriuret Pep 4440 Total Protein Albumin Lipase 1456 H Procalcitonin 0.35 Urine Color Urine Appearance Urine pH Ur Specific [place] Urine Protein Urine Glucose (UA) Urine Ketones Urine Blood Urine Nitrite Urine Bilirubin Urine Urobilinogen Ur Leukocyte Esterase Urine RBC Urine WBC Ur Squamous Epith Cells Urine Bacteria Urine Yeast Ethyl Alcohol SARS-CoV-2 (PCR) Influenza Type A (PCR) Influenza Type B (PCR) RSV (PCR) Lab Acknowledgement Test Added Test Added POC Troponin I 05/03/23 05/04/23 22:05 06:41 WBC 8.56 RBC 3.94 L Hgb 12.8 Hct 36.6 MCV 93 MCH 33 MCHC 35 RDW Coeff of Alison Plt Count 328 Neut % (Auto) Lymph % (Auto) [place] % (Auto) Eos % (Auto) Baso % (Auto) Neut # (Auto) Lymph # (Auto) [place] # (Auto) Eos # (Auto) Baso # (Auto) Abs Immat Gran (auto) Imm/Tot Granulo (auto) INR VBG pH 7.326 7.272 L VBG pCO2 40 50 VBG pO2 27.3 38.9 VBG HCO3 21 23 Sodium 127 L 133 L Potassium 3.3 L 3.3 L Chloride 97 101 Carbon Dioxide 18 L 22 BUN 16 15 Creatinine 1.2 1.2 Estimated Creat Clear 42.42 42.42 Estimated GFR 49 49 Glucose 359 H* 293 H Hemoglobin A1c Lactate 2.2 H 1.7 Calcium 9.5 9.7 Ionized Calcium Carolyn 1.39 H Magnesium 2.1 Total Bilirubin 0.4 Direct Bilirubin AST 24 ALT 18 Alkaline Phosphatase 134 Troponin I 0.04 C-Reactive Protein 2.8 H NT-Pro-B Natriuret Pep 3480 Total Protein 5.9 L Albumin 3.1 L Lipase 697 H Procalcitonin 0.33 Urine Color Urine Appearance Urine pH Ur Specific [place] Urine Protein Urine Glucose (UA) Urine Ketones Urine Blood Urine Nitrite Urine Bilirubin Urine Urobilinogen Ur Leukocyte Esterase Urine RBC Urine WBC Ur Squamous Epith Cells Urine Bacteria Urine Yeast Ethyl Alcohol SARS-CoV-2 (PCR) Influenza Type A (PCR) Influenza Type B (PCR) RSV (PCR) Lab Acknowledgement POC Troponin I
[2023-05-04] MEDS: METOPROLOL TARTRATE 50 MG TABLET PO ×2 (12:19→21:29)
[2023-05-04] MEDS: lisinopriL 10 MG TABLET PO (12:19)
[2023-05-04 13:11] LABS: Thyroid Stimulating Hormone* 0.705 uIU/mL (0.270-4.20)
[2023-05-04] MEDS: levoFLOXacin 500 MG TABLET PO (21:30)
[2023-05-04] MEDS: ENOXAPARIN 40 MG/0.4 ML INJ SUBCUT (21:30)
[2023-05-04] MEDS: FAMOTIDINE 20 MG TABLET 40 MG PO (21:30)
[2023-05-04] MEDS: ROSUVASTATIN CALCIUM 10 MG TABLET 5 MG PO (21:30)
[2023-05-04] MEDS: MELATONIN 3 MG TABLET PO (21:56)
[2023-05-05 02:22] VITALS: BP 142/72; PULSE 59; RESP 18; TEMP 36.1; O2SAT 100
--- NOTE | 2023-05-05 06:03 | PC.NURSE ---
: Pt minimal needs tonight, vss on ra, up with walker IND to BR, blood glucose remaining high but improved, was 384 at bedtime then 312 at 0230, dr butts was updated prior to midnight and added new insulin orders, pt denies s&s, no diarrhea still awaiting stool culture.
[2023-05-05 07:00] VITALS: BP 153/84; PULSE 61; PULSE 76; RESP 18; TEMP 36.5; O2SAT 98
[2023-05-05 07:16] LABS: Chloride* 102 mmol/L (96-114)
[2023-05-05 07:17] LABS: Potassium* 4.2 mmol/L (3.6-5.1); Sodium* 132 mmol/L (135-149)
[2023-05-05 07:19] LABS: Carbon Dioxide* 22 mmol/L (20-32); Creatinine* 1.2 mg/dL (0.5-1.5); Est. Creatinine Clearance* 42.42; Estimated Glomerular Filt Rate 49 ml/min
[2023-05-05 07:20] LABS: Blood Urea Nitrogen* 14 mg/dL (7-30); Calcium* 9.9 mg/dL (8.4-10.6); Glucose* 350 mg/dL (60-115)
[2023-05-05] MEDS: DULOXETINE 30 MG CAPSULE DR 60 MG PO (08:50)
[2023-05-05] MEDS: METOPROLOL TARTRATE 50 MG TABLET PO ×2 (08:50→20:32)
[2023-05-05] MEDS: OXYCODONE 5 MG TABLET PO ×2 (08:51→16:20)
[2023-05-05] MEDS: lisinopriL 10 MG TABLET PO (08:51)
[2023-05-05] MEDS: INSULIN PROT/ASP (NOVOLOG 70/30) 100 UNIT/ML 30 UNIT SUBCUT (08:52)
[2023-05-05] MEDS: SODIUM CHLORIDE 0.9 % (FLUSH) 10 ML SYRINGE 5 ML IVF ×2 (08:54→20:33)
[2023-05-05 11:00] VITALS: BP 145/82; PULSE 78; RESP 18; TEMP 36.6; O2SAT 98
[2023-05-05 15:00] VITALS: BP 145/53; PULSE 65; PULSE 73; PULSE 78; RESP 18; TEMP 36.7; O2SAT 98
--- NOTE | 2023-05-05 16:02 | PM.IMPN1 ---
Progress Note: A&P Assessment and plan (1) Hyperosmolar hyperglycemic state (HHS): Problem details: -stupor, hyperglycemia, non acidotic -now off insulin drip, fluids, electrolyte correction -pseudohyponatriemia - starting 70/30 insulin today Status: Acute (2) Acute confusion: Problem details: 05/05/23 [place] . She is acutely better. Acute confusion likely primarily due to HHS. Status: Resolved (3) Pneumonia: Problem details: Clinically does not have obvious symptoms of pneumonia. Treat with Levaquin for community-acquired pneumonia based on abnormal chest x-ray. Using Levaquin to treat empirically for UTI. Status: Acute (4) Acute pyelonephritis: Problem details: Patient with recurrent UTI. Has chronic urinary symptoms. On cephalexin for prophylaxis. On that basis will use Levaquin for treatment. Awaiting urine culture. Status: Acute (5) Noncompliance: Problem details: Patient acknowledges chronic medication noncompliance and poor diabetes monitoring at home. This is likely gotten much worse with her increasing confusion over the past month Status: Acute (6) Morbid obesity: Status: Acute (7) Opioid dependence: Problem details: -chronic back pain. Holding home Flexeril dosing. Had been taking oxycodone approximately 5 mg tablets up to 3 times a day. Will change dosing so she takes no more than one 5 mg tablet at a time. Status: Acute (8) Type 2 diabetes mellitus: Problem details: -A1c greater than 10 -presenting in [facility] -insulin drip, transitioning to subcut insulin per protocol, now off drip -mildly to moderately dehydrated, replacing electrolytes and intravenous volume -treating underlying pneumonia and cystitis -likely noncompliance/lifestyle is the root cause Temporarily will use insulin to control diabetes. Recommend resuming metformin and Bydureon when GI symptoms have improved. Status: Acute (9) History of tobacco abuse: Problem details: -[id number]. 1.5 PACKS PER DAY Status: Acute (10) Hypertension: Problem details: Lisinopril, hydralazine, metoprolol, spironolactone -BP increasing. Restart home antihypertensives. Status: Acute (11) Dysthymic disorder: Problem details: -continue Cymbalta Status: Acute (12) Diarrhea: Problem details: -stool studies, C diff ordered No stools since admission Status: Acute (13) Chronic pain: Status: Acute Plan Continue in-hospital for optimizing diabetes control, resuming blood pressure medications, monitoring and treating GI problems. Starting 70/30 insulin today. Restart metformin. Anticipate discharge to home when patient is able to manage self medication and tolerating oral food and fluid. Subjective Time Seen by Provider: 07:40 Date Seen: 05/05/23 Interval history: Ny feels a little tired today. She has no other complaints. Nursing staff notes that her blood glucoses have been high overnight and today. Exam Narrative: Exam Narrative: General: No acute distress. Awake, alert, oriented x3. No pallor. No jaundice. Oropharynx: Clear. Mucous membranes moist. Cardiovascular: Regular rate and rhythm. No murmurs, gallops, or rubs. Respiratory: Clear to auscultation bilaterally. No wheezes or crackles. Abdomen: Bowel sounds present. Soft, nondistended, nontender. Extremities: No pedal edema. Const: Vital Signs, click to edit/add: Vital Signs - 24 hr 05/04/23 21:35 05/04/23 23:14 05/04/23 23:15 Temperature 98 F Pulse Rate Pulse Rate [Apical ] 88 88 58 L Respiratory Rate 18 18 18 Blood Pressure [Le ft Arm] 128/67 Pulse Oximetry 96 91 Oxygen Delivery Me thod 05/04/23 23:17 05/05/23 02:22 05/05/23 07:00 Temperature 97 F L Pulse Rate 60 Pulse Rate [Apical ] 59 L 61 Respiratory Rate 18 18 Blood Pressure [Le ft Arm] 142/72 H Pulse Oximetry 100 Oxygen Delivery Me thod Room Air 05/05/23 07:00 05/05/23 07:00 05/05/23 11:00 Temperature 97.7 F 98 F Pulse Rate 67 Pulse Rate [Apical ] 76 78 Respiratory Rate 18 18 Blood Pressure [Le ft Arm] 153/84 H 145/82 H Pulse Oximetry 98 98 Oxygen Delivery Me thod Room Air Room Air 05/05/23 15:00 Temperature Pulse Rate Pulse Rate [Apical ] 78 Respiratory Rate 18 Blood Pressure [Le ft Arm] Pulse Oximetry Oxygen Delivery Me thod Labs Labs: Laboratory Results - last 24 hr 05/05/23 06:19 Sodium 132 L Potassium 4.2 Chloride 102 Carbon Dioxide 22 BUN 14 Creatinine 1.2 Estimated Creat Clear 42.42 Estimated GFR 49 Glucose 350 H Calcium 9.9
[2023-05-05] MEDS: INSULIN PROT/ASP (NOVOLOG 70/30) 100 UNIT/ML 20 UNIT SUBCUT (18:29)
[2023-05-05 19:00] VITALS: BP 104/69; PULSE 69; RESP 18; TEMP 36.4; O2SAT 98
[2023-05-05] MEDS: levoFLOXacin 500 MG TABLET PO (20:28)
[2023-05-05] MEDS: FAMOTIDINE 20 MG TABLET 40 MG PO (20:31)
[2023-05-05] MEDS: ROSUVASTATIN CALCIUM 10 MG TABLET 5 MG PO (20:31)
[2023-05-05] MEDS: METFORMIN 500 MG TABLET PO (20:32)
[2023-05-05] MEDS: ENOXAPARIN 40 MG/0.4 ML INJ SUBCUT (20:33)
[2023-05-05] MEDS: INSULIN PROT/ASP (NOVOLOG 70/30) 100 UNIT/ML 10 UNIT SUBCUT (21:41)
[2023-05-05 23:00] VITALS: BP 142/75; PULSE 64; PULSE 65; RESP 18; TEMP 36.5; O2SAT 98
[2023-05-06 03:00] VITALS: BP 163/83; PULSE 64; RESP 18; TEMP 36.5; O2SAT 100
[2023-05-06 07:00] VITALS: BP 164/81; PULSE 75; PULSE 83; RESP 20; TEMP 36.4; O2SAT 99
[2023-05-06 07:16] LABS: Chloride* 103 mmol/L (96-114); Sodium* 135 mmol/L (135-149)
[2023-05-06 07:17] LABS: Potassium* 4.1 mmol/L (3.6-5.1)
[2023-05-06 07:19] LABS: Creatinine* 1.2 mg/dL (0.5-1.5); Est. Creatinine Clearance* 42.42; Estimated Glomerular Filt Rate 49 ml/min
[2023-05-06 07:20] LABS: Blood Urea Nitrogen* 14 mg/dL (7-30); Calcium* 10.5 mg/dL (8.4-10.6); Carbon Dioxide* 26 mmol/L (20-32); Glucose* 192 mg/dL (60-115)
--- NOTE | 2023-05-06 07:34 | PC.NURSE ---
Shift note: Pt is doing well. Had a shower at 0100. Denied any pain, SOB and cough. SBA with walker. Vitally stable.
--- NOTE | 2023-05-06 08:07 | P.DS_ITS ---
DS: Providers Provider Time Seen by Provider: 07:54 Date Seen: 05/06/23 Date of admission: 05/03/23 15:20 Primary care physician: Kasey Zepeda DO Admitting Clinician: Rod Sanchez MD Consults: 05/03/23 15:20 Consult to Nutrition [CONS] Routine Comment: Reason for consult:: Diabetic Teaching Consult to Occupational Therapy [CONS] Routine Comment: Reason(s) for OT Consult:: Evaluate and Treat Any Restrictions?:: No Restrictions Consult to Physical Therapy [CONS] Routine Comment: Reason(s) for PT Consult:: Evaluate and Treat Any Restrictions?:: No Restrictions Consult to Enrollment Eligibility Representative [CONS] Routine Comment: Reason for Consult:: Social Service Consult Attending Physician on discharge: Violeta Raygoza MD Date of Discharge: 05/06/23 DS: Diagnosis Discharge Diagnosis (1) Acute confusion: Status: Resolved Problem details: 05/05/23 [place] . She is acutely better. Acute confusion likely primarily due to HHS. (2) Hyperosmolar hyperglycemic state (HHS): Status: Acute Problem details: -stupor, hyperglycemia, non acidotic -now off insulin drip, fluids, electrolyte correction -pseudohyponatriemia - BG improving with 70/30 insulin (3) Pneumonia: Status: Acute Problem details: Clinically does not have obvious symptoms of pneumonia. Treat with Levaquin for community-acquired pneumonia based on abnormal chest x-ray. Using Levaquin to treat empirically for UTI. (4) Acute pyelonephritis: Status: Acute Problem details: Patient with recurrent UTI. Has chronic urinary symptoms. On cephalexin for prophylaxis. BCx2 negative. Specimen: [id number] RES Collected: 05/03/23-UNK Received: 05/03/23-1206 Source: Urine CC Sp Descrip: Sub Dr: Robert Cruz M.D. Other Dr: Procedure Result Site Urine Culture* Preliminary ML 40,000 - 50,000 COL/ML YEAST ISOLATE NO FURTHER WORKUP (5) History of tobacco abuse: Status: Chronic Problem details: -[id number]. 1.5 PACKS PER DAY (6) Type 2 diabetes mellitus: Status: Chronic Problem details: -A1c greater than 10 -presenting in HHS -insulin drip, transitioning to subcut insulin per protocol, now off drip -mildly to moderately dehydrated, replacing electrolytes and intravenous volume -treating underlying pneumonia and cystitis -likely noncompliance/lifestyle is the root cause - Now on 70/30, starting metformin today. Will have pt see PCP to determine when to start Bydureon. May be able to wean off 70/30 in the future. (7) Shingles: Status: Chronic Problem details: -left buttock, no pain. Chronic/intermittent -cover with Mepilex (8) Hypertension: Status: Chronic Problem details: Lisinopril, hydralazine, metoprolol, spironolactone (9) Dysthymic disorder: Status: Acute Problem details: -continue Cymbalta (10) Opioid dependence: Status: Chronic Problem details: -chronic back pain. Holding home Flexeril dosing. Had been taking oxycodone approximately 5 mg tablets up to 3 times a day. Changed dosing so she takes no more than one 5 mg tablet at a time. (11) H/O Graves' disease: Status: Chronic Problem details: - 05/04/23 TSH 0.705 (12) Morbid obesity: Status: Chronic (13) Noncompliance: Status: Acute Problem details: Patient acknowledges chronic medication noncompliance and poor diabetes monitoring at home. This is likely gotten much worse with her increasing confusion over the past month (14) Diarrhea: Status: Resolved Problem details: -stool studies, C diff ordered No stools since admission DS: Summary Hospital Course Hospital Course: 72-year-old female with diabetes mellitus type 1.5 that is uncontrolled secondary to noncompliance. It is possible that noncompliance was exacerbated by confusion from hyperglycemic hyper osmolar state recently. She was admitted for treatment of hyperglycemia and HHS with acute confusion. Mental status improved, she has been evaluated by PT and OT, [place] was 27/30, hyperglycemia and electrolytes have improved. She is discharged home today with home health orders for nursing to help manage medications and diabetes as well as PT and home. She will have follow-up with Dr. Delgado, her primary care provider, later this week or next. Time Spent with Patient Time attestation: Total time spent providing and/or coordinating discharge services: Exam Narrative: Exam Narrative: General: No acute distress. Awake, alert, oriented x3. No pallor. No jaundice. Oropharynx: Clear. Mucous membranes moist. Cardiovascular: Regular rate and rhythm. No murmurs, gallops, or rubs. Respiratory: Clear to auscultation bilaterally. No wheezes or crackles. Abdomen: Bowel sounds present. Soft, nondistended, nontender. Extremities: No pedal edema. Const: Vital Signs, click to edit/add: Vital Signs - 24 hr 05/05/23 11:00 05/05/23 15:00 05/05/23 15:00 Temperature 98 F Pulse Rate 65 Pulse Rate [Apical ] 78 78 Respiratory Rate 18 18 Blood Pressure [Le ft Arm] 145/82 H Pulse Oximetry 98 Oxygen Delivery Me thod Room Air Oxygen Flow Rate 05/05/23 15:00 05/05/23 19:00 05/05/23 23:00 Temperature 98.1 F 97.5 F L Pulse Rate 65 Pulse Rate [Apical ] 73 69 Respiratory Rate 18 18 Blood Pressure [Le ft Arm] 145/53 H 104/69 Pulse Oximetry 98 98 Oxygen Delivery Me thod Room Air Room Air Oxygen Flow Rate 1 05/05/23 23:00 05/06/23 03:00 Temperature 97.7 F 97.7 F Pulse Rate Pulse Rate [Apical ] 64 64 Respiratory Rate 18 18 Blood Pressure [Le ft Arm] 142/75 H 163/83 H Pulse Oximetry 98 100 Oxygen Delivery Me thod Room Air Room Air Oxygen Flow Rate DS: Data Data Completed and Pending Completed studies during hospitalization: 05/03/2023 EKG: Normal sinus rhythm, heart rate 86 beats per minute, left ventricular hypertrophy with QRS widening and repolarization abnormality, prolonged QT. Ordering Physician: Robert Cruz M.D. Date of Service: 05/03/23 Procedure(s): XR chest 2V Accession Number(s): [id number] cc: Robert Cruz M.D.; Kasey Zepeda D.O.~ For Patients: As a result of the 21st Century Cures Act, medical imaging exams and procedure reports are released immediately into your electronic medical record. You may view this report before your referring provider. If you have questions, please contact your health care provider. INDICATION: Dyspnea COMPARISON: None TECHNIQUE: PA and lateral views of the chest were acquired FINDINGS: TUBES AND LINES: None. HEART AND MEDIASTINUM: The heart size is top normal. The mediastinal contour appears normal for patient age. LUNGS AND PLEURAL SPACES: Abnormal interstitial markings primarily on the right. The appearance is suggestive of edema though it is asymmetric. This could be the asymmetric development of edema or an atypical appearing inflammatory process.No pleural effusion or pneumothorax. OSSEOUS STRUCTURES: Age-appropriate appearance. No acute focal finding. IMPRESSION: Abnormal interstitial markings. Differential considerations are asymmetric development of edema versus an atypical inflammatory process. Dictated by Raymundo Llanes MD @ 05/03/2023 2:35:21 PM (Electronically Signed) Labs on day of discharge: Labs from last 24 hours 05/06/23 06:15 Sodium 135 Potassium 4.1 Chloride 103 Carbon Dioxide 26 BUN 14 Creatinine 1.2 Estimated Creat Clear 42.42 Estimated GFR 49 Glucose 192 H Calcium 10.5 Preliminary micro results at discharge 05/03/23 15:47 Blood Culture - Preliminary Blood NO GROWTH AFTER 48 HOURS 05/03/23 15:37 Blood Culture - Preliminary Blood NO GROWTH AFTER 48 HOURS 05/03/23 Unknown Urine Culture - Preliminary Urine,Clean Catch Discharge Plan Discharge Disposition: Home, Self-Care Date of Admission: 05/03/23 15:20 Attending Provider on Discharge: Violeta Raygoza Primary Care Provider: Kasey Zepeda Condition: Stable Anticipated Discharge Date/Time: 05/06/23 08:24 Discharge Medications: New metoprolol tartrate 50 mg Tablet 50 mg PO BID Qty: 60 0RF metformin 500 mg Tablet Extended Release 24 Hr 1,000 mg PO DAILY Qty: 30 0RF levofloxacin 500 mg Tablet 500 mg PO Q24H 1 Days Qty: 1 0RF oxycodone 5 mg Tablet 2.5 - 5 mg PO Q4H PRN (Reason: Pain) Qty: 0 0RF insulin asp prt-insulin aspart [Novolog Mix 70-30FlexPen U-100] 100 unit/mL (70-30) Insulin Pen 30 unit subcut QPM Qty: 15 0RF insulin asp prt-insulin aspart [Novolog Mix 70-30FlexPen U-100] 100 unit/mL (70-30) Insulin Pen 50 unit subcut QAM Qty: 15 0RF Continued lisinopril 40 mg tablet 40 mg PO DAILY cyclobenzaprine 10 mg tablet 10 mg PO TID PRN ibuprofen 600 mg tablet 600 mg PO BID PRN spironolactone [Aldactone] 25 mg tablet 25 mg PO DAILY famotidine 40 mg tablet 40 mg PO QHS nortriptyline 25 mg capsule 25 mg PO QHS rosuvastatin [Crestor] 5 mg tablet 5 mg PO HS duloxetine [Cymbalta] 30 mg capsule,delayed release(DR/EC) 60 mg PO DAILY Patient Comments: HAS NOT BEEN TAKING. 05/03/23 cetirizine 10 mg tablet 10 mg PO DAILY cholecalciferol (vitamin D3) [Vitamin D3] 50 mcg (2,000 unit) capsule 50 mcg PO DAILY Discontinued metoprolol tartrate [Lopressor] 100 mg tablet 100 mg PO BID oxycodone 5 mg tablet 5 - 10 mg PO Q6H PRN (Reason: pain) metformin 500 mg tablet 500 mg PO BID Discharge Orders: Discharge Order (Routine); Ordered 05/06/23 Ordered By: Violeta Raygoza Patient Education: Diabetic Hyperglycemia (DC) Additional Instructions: Home Health Nursing and PT (See orders) Check your blood sugars 4 times a day and record the results. Bring this log with you to your PCP appointment. Activity Level: No Restrictions and Use Walker Discharge Diet: Diabetic Follow Up Appointments: Kasey Zepeda DO [Primary Care Provider] - (5-7 days) Forms: MyHealth Info Instructions
[2023-05-06] MEDS: DULOXETINE 30 MG CAPSULE DR 60 MG PO (08:57)
[2023-05-06] MEDS: METOPROLOL TARTRATE 50 MG TABLET PO (08:57)
[2023-05-06] MEDS: METFORMIN ER 500 MG 1000 MG PO (08:57)
[2023-05-06] MEDS: lisinopriL 10 MG TABLET PO (08:58)
[2023-05-06] MEDS: SPIRONOLACTONE 25 MG TABLET PO (08:58)
[2023-05-06] MEDS: INSULIN PROT/ASP (NOVOLOG 70/30) 100 UNIT/ML 40 UNIT SUBCUT (09:02)
[2023-05-06] MEDS: SODIUM CHLORIDE 0.9 % (FLUSH) 10 ML SYRINGE 5 ML IVF (09:04)
--- NOTE | 2023-05-06 11:59 | PC.NURSE ---
Addendum entered by Diana Lara RN 05/06/23 16:22: Late entry:Tele on this patient indicated NSR, she denied CP or SOB. Original Note: Please see eMar for meds provided, BG 187 this am SS Novolog 3 units plus scheduled dose of 40units of 70/30 insulin provided. Pt performing her own toileting, feeding and states she showered overnight. No dysphagia with meds. Eval by Dr. Ragyoza. Pt instructed on sx of hyperglycemia and hypoglycemia with d/c papers. RN reviewed insulin injection procedure SQ with patient, pt instructed to wash hands, RN demonstrated how to connect needle, prime pen, pinch skin and inject site like a dart while releasing skin pinch, hold the plunger on pen down for 6 seconds red flag will alert patient the dose is completed. Pt stated she has given a different injection into her stomach in the past and feels comfortable with the procedure. Pt to check her BG 4 times a day, AC and HS. She stated she had equipment at home for BG testing. Pt verbalized understanding of d/c diagnosis, home meds, new prescriptions and changed doses on 3 of her medication. F/up appt with Dr. Blake on 05/09/23. Pt discharged via w/c to own home with grandvasile Morgan and personal belongings @ 1139 am.
[2023-05-10 17:05] LABS: Alanine Aminotransferase* 18 U/L (4-35); Albumin* 3.1 g/dL (3.3-5.0); Alkaline Phosphatase* 134 U/L (40-150); Anion Gap 10 mEq/L (7-15); Aspartate Amino Transferase* 24 U/L (12-35); Bilirubin Total* 0.4 mg/dL (0.1-1.5); Blood Urea Nitrogen* 15 mg/dL (7-30); Calcium* 9.7 mg/dL (8.4-10.6); Carbon Dioxide* 22 mmol/L (20-32); Chloride* 101 mmol/L (96-114); Creatinine* 1.2 mg/dL (0.5-1.5); Est. Creatinine Clearance* 42.42; Estimated Glomerular Filt Rate 49 ml/min; Glucose* 293 mg/dL (60-115); Potassium* 3.3 mmol/L (3.6-5.1); Sodium* 133 mmol/L (135-149); Total Protein* 5.9 g/dL (6.0-8.3)
[2023-05-10 17:06] LABS: Magnesium* 2.1 mg/dL (1.5-2.6)
--- NOTE | 2023-05-11 15:10 | PC.SOCIAL ---
Discharge Summary: Contacted [facility] [phone] ([facility]). They can start her on Sunday, 05/15. Paperwork faxed with updated Face to Face. Contacted patient to inform her of [facility]'s plan to come out on Sunday and contact number. Social work to follow up as needed.
== END 2023-05-06 11:39 | disposition home or self-care (01) | DRG 637 ==
LOC: ED 13:16 → MEDSURG 15:18
PROVIDERS: Family Medicine; Admitting Provider Family Medicine; Emergency Provider Family Medicine; PCP Family Medicine; Visit Provider Internal Medicine
DX: E11.00 Type 2 diabetes mellitus with hyperosmolarity without nonketotic hyperglycemic-hyperosmolar coma (NKHHC) (principal); J18.9 Pneumonia, unspecified organism; N10 Acute pyelonephritis; F11.20 Opioid dependence, uncomplicated; Z87.440 Personal history of urinary (tract) infections; R41.0 Disorientation, unspecified; R19.7 Diarrhea, unspecified; Z91.148 Patient's other noncompliance with medication regimen for other reason; E86.0 Dehydration; E66.01 Morbid (severe) obesity due to excess calories; M51.36 Other intervertebral disc degeneration, lumbar region; G89.29 Other chronic pain; Z79.84 Long term (current) use of oral hypoglycemic drugs; K08.109 Complete loss of teeth, unspecified cause, unspecified class; Z68.38 Body mass index [BMI] 38.0-38.9, adult; F34.1 Dysthymic disorder; B02.9 Zoster without complications; I10 Essential (primary) hypertension; Z87.891 Personal history of nicotine dependence; Z86.39 Personal history of other endocrine, nutritional and metabolic disease
CPT/HCPCS: 36415; 71046; 80048; 80053; 80076; 80306; 81001; 82077; 82330; 82803; 82962; 83036; 83605; 83690; 83735; 83880; 84145; 84443; 84484; 85025; 85027; 85610; 86140; 87040; 87045; 87046; 87086; 87186; 87252; 87427; 87493; 87631; 93005; 94761; 97110; 97112; 97116; 97162; 97166; 97530; 97535; 99284; 99285; A9270; C9113; J0696; J1650; J2270; J2405; J3475; J3480; J3590; J7030; S0030